=== PATIENT | male | born 1980 | race American Indian/Alaskan Native ===

== ENCOUNTER 2018-01-24 00:34 | Emergency (ER) | payer OTHER ==
--- NOTE | 2018-01-24 02:00 | EDM.PDOC ---
ED HPI GENERAL MEDICAL PROBLEM - General Chief Complaint: Upper Extremity Injury/Pain Stated Complaint: SMASHED HAND AT WORK NO PHONE Time Seen by Provider: 01/24/18 01:56 Source of Information: Reports: Patient History Limitations: Reports: No Limitations - History of Present Illness INITIAL COMMENTS - FREE TEXT/NARRATIVE: accidentally hit left hand with hammer at work. Right Hand Pain Score (Numeric/FACES): 8 - Related Data Allergies Allergy/AdvReac Type Severity Reaction Status Date / Time No Known Allergies Allergy Verified 01/24/18 00:44 Home Meds: Home Meds . [No Known Home Meds] 01/24/18 [History] Past Medical History - Past Health History Medical/Surgical History: Denies Medical/Surgical History Social & Family History - Family History Family Medical History: Noncontributory - Tobacco Use Smoking Status *Q: Current Every Day Smoker Years of Tobacco use: 1 Packs/Tins Daily: 1 - Caffeine Use Caffeine Use: Reports: Energy Drinks - Recreational Drug Use Recreational Drug Use: No Review of Systems - Review of Systems Review Of Systems: ROS reveals no pertinent complaints other than HPI. ED EXAM, GENERAL - Physical Exam Exam: See Below Exam Limited By: No Limitations General Appearance: Alert, WD/WN, Mild Distress, Other ([place]) Ears: Hearing Grossly Normal Throat/Mouth: Normal Voice, No Airway Compromise Head: Atraumatic Neck: Non-Tender, Full Range of Motion Respiratory/Chest: No Respiratory Distress Cardiovascular: Regular Rate, Rhythm GI/Abdominal: Soft, Non-Tender Extremities: Other (left hand swollen dorsally at 1st web without gross D/D, [place] wnl) Neurological: Alert, Oriented, Normal Cognition, Normal Gait, No Motor/Sensory Deficits Psychiatric: Flat Affect Skin Exam: Warm, Dry, Normal Color Lymphatic: No Adenopathy Course - Vital Signs Last Recorded V/S: Last Vital Signs Temp 37.2 C 01/24/18 00:45 Pulse 77 01/24/18 00:45 Resp 16 01/24/18 00:45 BP 123/74 01/24/18 00:45 Pulse Ox 99 01/24/18 00:45 - Orders/Labs/Meds Orders: Active Orders 24 hr Category Date Time Status Hand Comp Min 3V Lt [CR] Urgent Exams 01/24/18 00:58 Ordered Departure - Departure Time of Disposition: 01:58 Disposition: Home, Self-Care 01 Condition: Good Clinical Impression: Contusion of hand, left Qualifiers: Encounter type: initial encounter Qualified Code(s): S60.222A - Contusion of left hand, initial encounter - Discharge Information Instructions: Contusion, [id number] Additional Instructions: 1) wear brace for comfort 2) ice intermittently for swelling 3) tylenol or motrin as needed 4) recheck if not significantly better by Thursday - My Orders Last 24 Hours: My Active Orders 01/24/18 00:58 Hand Comp Min 3V Lt [CR] Urgent - Assessment/Plan Last 24 Hours: My Active Orders 01/24/18 00:58 Hand Comp Min 3V Lt [CR] Urgent
== END 2018-01-24 02:05 | disposition home or self-care (01) ==
LOC: DL.ED 00:34
DX: S60.222A Contusion of left hand, initial encounter (principal); F17.210 Nicotine dependence, cigarettes, uncomplicated; W22.8XXA Striking against or struck by other objects, initial encounter
CPT/HCPCS: 73130-LT; 99283